=== PATIENT | female | born 1955 | race Two or more races ===

== ENCOUNTER 2023-12-16 23:53 | Inpatient (IN) | payer OTHER, MEDICAID ==
[~2023-12-16] VITALS: Ht 165.1 cm; Wt 64.5 kg
[2023-12-17] VITALS (64 sets, daily range): BP systolic 98–185; BP diastolic 36–81; PULSE 71–118; RESP 20–34; TEMP 98.2–102; O2SAT 96–100
[2023-12-17] MEDS: ETOMIDATE (2MG/ML) 20ML VIAL IV ONE (00:07)
[2023-12-17] MEDS: ROCURONIUM 10MG/ML 10ML VIAL IV ONE (00:08)
[2023-12-17 00:33] LABS: Eosinophils # (auto) 0.1 10 ^3/uL (0-0.8); Hematocrit 41.1 % (36.0-46.0); Monocytes # (auto) 0.7 10 ^3/uL (0-1.3); White Blood Cell 13.5 10^3/uL (4.4-10.8)
[2023-12-17 00:34] LABS: Basophils # (auto) 0.1 10 ^3/uL (0-0.2); Basophils % (auto) 0.4 % (0.0-2.0); Eosinophils % (auto) 0.5 % (0.0-7.0); Hemoglobin 12.9 g/dL (12.2-16.2); Lymphocytes # (auto) 7.1 10 ^3/uL (0.4-5.4); Lymphocytes % (auto) 52.5 % (10.0-50.0); Mean Corpuscular Hemoglobin 25.4 pg (28.0-32.0); Mean Corpuscular Hgb Conc. 31.4 g/dL (32.0-36.0); Mean Corpuscular Volume 80.8 fL (80.0-100.0); Monocytes % (auto) 5.3 % (0.0-12.0); Neutrophils # (auto) 5.6 10 ^3/uL (1.6-8.6); Neutrophils % (auto) 41.3 % (37.0-80.0); Red Blood Cells 5.08 10^6/uL (4.0-5.20); Red Cell Distribution Width 18.6 % (11.8-14.3)
[2023-12-17 00:37] LABS: Alanine Aminotransferase 14 U/L (7-40); Albumin 4.3 g/dL (3.2-4.8); Alkaline Phosphatase 101 U/L (46-116); Anion Gap 19 (5-15); Aspartate Aminotransferase 30 U/L (13-40); BUN/Creatinine Ratio 18.7 (10.0-20.0); Bilirubin, Total 0.3 mg/dL (0.2-1.0); Blood Urea Nitrogen 14 mg/dL (9-23); Calcium 9.6 mg/dL (8.7-10.4); Carbon Dioxide 16 mmol/L (20-30); Chloride 108 mmol/L (98-107); Glucose 241 mg/dL (74-106); Lipase 49 U/L (12-53); Potassium 4.1 mmol/L (3.5-5.1); Sodium 143 mmol/L (136-145); Total Protein 7.8 g/dL (5.7-8.2)
[2023-12-17] MEDS: PROPOFOL 100 ML IV SCH (00:45)
[2023-12-17 00:49] LABS: Lactic Acid w/Reflex 11.2 mmol/L (0.4-2.0)
[2023-12-17 01:21] LABS: Urine Bacteria None Seen /hpf (None Seen)
[2023-12-17] MEDS: ONDANSETRON HCL 4 MG/2 ML VIAL IV ONE (01:34)
[2023-12-17] MEDS: IOHEXOL 350 MG/ML 100ML IJ ONE (01:34)
[2023-12-17] MEDS: MORPHINE SULFATE 4 MG/ML SYR/VIAL IV ONE (01:34)
[2023-12-17 01:37] LABS: Urine Blood Negative /uL (Negative); Urine Clarity Clear (Clear); Urine Color Colorless (Yellow); Urine Hyaline Cast FEW /lpf (0 - 2); Urine Protein, UAD 2+ (Negative); Urine Specific Gravity 1.013 (1.001-1.035); Urine Urobilinogen Normal (Negative); Urine WBC 3 /hpf (0 - 5); Urine pH 5.5 (5.0-9.0)
[2023-12-17 01:44] LABS: Amphetamine Screen, Urine Neg (NEGATIVE); Barbiturate Scree,Urine Neg (NEGATIVE); Benzodiazephine Screen, Urine Neg (NEGATIVE)
[2023-12-17 01:45] LABS: Cannabinoid Screen, Urine Neg (NEGATIVE); Cocaine Screen, Urine Neg (NEGATIVE); Opiate Scree,Urine Neg (NEGATIVE); Phencyclidine Screen, Urine Neg (NEGATIVE)
[2023-12-17] MEDS: MIDAZOLAM DRIP 50 mg/50mL 50 ML IV SCH (01:55)
[2023-12-17] MEDS: SODIUM CHLORIDE 0.9% 1,000 ML IV ONE ×2 (01:55)
[2023-12-17 01:58] LABS: Base Excess -15.5 mmol/L (-2.0-2.0)
[2023-12-17] MEDS: NOREPINEPHRINE 8 MG/250ML KIT 250 ML IV SCH (02:25)
[2023-12-17] MEDS: DexAMETHasone SOD PHOS 10MG/1ML VIAL INJ IV ONE (02:37)
[2023-12-17] MEDS: NOREPINEPHRINE 8 MG/250ML KIT 250 ML IV ONE (02:38)
[2023-12-17] MEDS: CEFEPIME 2GM/50ML NS 50 ML IV ONE (02:48)
[2023-12-17] MEDS: VANCOMYCIN 1GM/200ML 200 ML IV ONE (02:49)
[2023-12-17 02:54] LABS: COVID19 ANTIGEN SOFIA FIA NEGATIVE (NEGATIVE)
[2023-12-17 03:53] LABS: Base Excess -11.1 mmol/L (-2.0-2.0)
[2023-12-17] MEDS ORDERED: MORPHINE SULFATE INJ 2 MG/ml SYRG IV PRN (06:00)
[2023-12-17] MEDS ORDERED: ONDANSETRON HCL 4 MG/2 ML VIAL IV PRN (06:00)
[2023-12-17] MEDS ORDERED: NITROGLYCERIN 0.4 MG SL TAB SL PRN (06:00)
[2023-12-17] MEDS ORDERED: VANCOMYCIN PER PHARMACY 0 MG IV SCH (06:00)
[2023-12-17] MEDS ORDERED: DEXTROSE (50%) 50ML SYRG IV PRN ×2 (06:00→13:30)
[2023-12-17] MEDS ORDERED: ACETAMINOPHEN 325 MG TAB PO PRN (06:00)
[2023-12-17] MEDS: ACCU-CHEK COMFORT CURVE STRIP VI SCH ×2 (06:42→17:57)
[2023-12-17] MEDS: InsuLIN REG 1unit/0.01ml Soln (100units/ml) SC SCH ×2 (06:44→17:58)
[2023-12-17] MEDS: SODIUM CHLORIDE 0.9% 1,000 ML IV SCH (06:46)
[2023-12-17] MEDS: ACETAMINOPHEN 500 MG TAB PO ONE (06:46)
[2023-12-17] MEDS: PIPERACILLIN-TAZOB 3.375GM 100 ML IV SCH (06:46)
[2023-12-17] MEDS: ENOXAPARIN SOD 60 MG/0.6 ML SYRINGE SC ONE (07:45)
[2023-12-17] MEDS: DOXYCYCLINE 100MG/250ML 250 ML IV SCH (10:45)
[2023-12-17] MEDS: fentaNYL Drip 2500mCg/250mlNS 250 ML IV SCH (11:15)
[2023-12-17] MEDS: PANTOPRAZOLE 40 MG/10 ML VIAL INJ IV ONE (11:21)
[2023-12-17] MEDS: HYDROCORTISONE SOD SUCC 100 MG/2ML INJ VIAL IV ONE (11:21)
[2023-12-17] MEDS: MEROPENEM 1GM IVPB 50 ML IV ONE (11:21)
[2023-12-17 11:26] LABS: Base Excess -9.7 mmol/L (-2.0-2.0)
[2023-12-17 11:51] LABS: INR 1.04 (0.9-1.15); Partial Thromboplastin Time 30.2 SEC (24.5-34.5)
[2023-12-17 12:08] LABS: Magnesium 1.7 mg/dL (1.6-2.6)
[2023-12-17 12:39] LABS: Lactic Acid w/Reflex 4.6 mmol/L (0.4-2.0)
[2023-12-17] MEDS ORDERED: LIDOCAINE 2% JELLY 11ml (GLYDO) ONE (14:06)
[2023-12-17] MEDS ORDERED: EPINEPHrine HCL 1 MG/1 ML AMP ONE (14:06)
[2023-12-17] MEDS ORDERED: LIDOCAINE 2%HCL (LOCAL ANESTH.) INJ 20ML MDV ONE (14:06)
[2023-12-17] MEDS ORDERED: GLYCOPYRROLATE 0.2 MG/ML 1ML VIAL ONE (14:07)
[2023-12-17] MEDS: MAGNESIUM SULFATE 1GM/100ML 100 ML IV ONE (15:09)
[2023-12-17] MEDS: INSULIN LANTUS (GLARGINE) 1 /0.01ml (100units/ml) SC ONE (15:14)
[2023-12-17 16:12] LABS: Rapid Influenza A Negative (Negative); Rapid Influenza B Negative (Negative)
[2023-12-17] MEDS: VANCOMYCIN 750mg/150ml 150 ML IV SCH (16:17)
[2023-12-17] MEDS: MEROPENEM 1GM IVPB 50 ML IV SCH (19:43)
[2023-12-17] MEDS: HYDROCORTISONE SOD SUCC 100 MG/2ML INJ VIAL IV SCH (22:18)
[2023-12-18] VITALS (104 sets, daily range): BP systolic 87–133; BP diastolic 38–61; PULSE 62–92; RESP 10–25; TEMP 97–99; O2SAT 90–100
[2023-12-18 05:07] LABS: Lactic Acid w/Reflex 2.2 mmol/L (0.4-2.0)
[2023-12-18 06:16] LABS: Basophils # (auto) 0 10 ^3/uL (0-0.2); Eosinophils # (auto) 0 10 ^3/uL (0-0.8); Mean Corpuscular Hemoglobin 25.4 pg (28.0-32.0); Monocytes # (auto) 0.5 10 ^3/uL (0-1.3)
[2023-12-18 06:17] LABS: Base Excess -4.3 mmol/L (-2.0-2.0)
[2023-12-18 06:24] LABS: Basophils % (auto) 0.4 % (0.0-2.0); Hematocrit 29.9 % (36.0-46.0); Hemoglobin 9.7 g/dL (12.2-16.2); Lymphocytes # (auto) 0.9 10 ^3/uL (0.4-5.4); Mean Corpuscular Hgb Conc. 32.5 g/dL (32.0-36.0); Mean Corpuscular Volume 78.2 fL (80.0-100.0); Monocytes % (auto) 4.8 % (0.0-12.0); Neutrophils % (auto) 85.8 % (37.0-80.0); Red Blood Cells 3.83 10^6/uL (4.0-5.20); Red Cell Distribution Width 17.8 % (11.8-14.3); White Blood Cell 10.5 10^3/uL (4.4-10.8)
[2023-12-18 06:38] LABS: Alanine Aminotransferase 16 U/L (7-40); Albumin 3.1 g/dL (3.2-4.8); Alkaline Phosphatase 66 U/L (46-116); Anion Gap 10 (5-15); Aspartate Aminotransferase 38 U/L (13-40); BUN/Creatinine Ratio 19.2 (10.0-20.0); Blood Urea Nitrogen 10 mg/dL (9-23); Calcium 7.4 mg/dL (8.7-10.4); Carbon Dioxide 19 mmol/L (20-30); Chloride 113 mmol/L (98-107); Glucose 121 mg/dL (74-106); Magnesium 1.8 mg/dL (1.6-2.6); Potassium 3.6 mmol/L (3.5-5.1); Sodium 142 mmol/L (136-145)
[2023-12-18 06:39] LABS: Bilirubin, Total 0.3 mg/dL (0.2-1.0); Total Protein 5.6 g/dL (5.7-8.2)
[2023-12-18] MEDS: POTASSIUM CHL 20MEQ/100ML 100 ML IV SCH (08:00)
[2023-12-18] MEDS: MAGNESIUM SULFATE 1GM/100ML 100 ML IV ONE (08:00)
[2023-12-18] MEDS: CALCIUM GLUC 1,000mg/50ml-NS 50 ML IV SCH (08:11)
[2023-12-18 08:40] LABS: Base Excess -5.8 mmol/L (-2.0-2.0)
[2023-12-18] MEDS: PANTOPRAZOLE 40 MG/10 ML VIAL INJ IV SCH (09:15)
[2023-12-18] MEDS: ENOXAPARIN SOD 40 MG/0.4 ML SYRINGE SC SCH (09:16)
[2023-12-18] MEDS: INSULIN LANTUS (GLARGINE) 1 /0.01ml (100units/ml) SC SCH (09:42)
[2023-12-18 10:30] LABS: % Iron Saturation 10.2 % (15-50)
[2023-12-18] MEDS ORDERED: Glucerna 1.2 Cal 1Liter BOTTLE GT SCH (13:15)
[2023-12-18] MEDS: ASPirin 81 mg TAB GT SCH (15:48)
[2023-12-18] MEDS: SODIUM FERR GLUC 62.5MG/5ML 110 ML IV SCH (16:33)
[2023-12-18] MEDS: ETOMIDATE (2MG/ML) 20ML VIAL IV ONE (18:32)
[2023-12-18] MEDS: ROCURONIUM 10MG/ML 10ML VIAL IV ONE (18:33)
[2023-12-18] MEDS: ATORVASTATIN 20 MG TAB GT SCH (22:07)
[2023-12-19] VITALS (90 sets, daily range): BP systolic 101–155; BP diastolic 33–70; PULSE 61–92; RESP 11–32; TEMP 97.3–100.2; O2SAT 90–100
[2023-12-19] MEDS: VANCOMYCIN 750mg/150ml 150 ML IV SCH (00:34)
[2023-12-19 03:50] LABS: Basophils # (auto) 0 10 ^3/uL (0-0.2); Basophils % (auto) 0.2 % (0.0-2.0); Eosinophils # (auto) 0 10 ^3/uL (0-0.8); Eosinophils % (auto) 0.3 % (0.0-7.0); Lymphocytes # (auto) 0.4 10 ^3/uL (0.4-5.4); Mean Corpuscular Volume 78.2 fL (80.0-100.0); Monocytes # (auto) 0.2 10 ^3/uL (0-1.3); Red Cell Distribution Width 18.4 % (11.8-14.3)
[2023-12-19 03:54] LABS: Hematocrit 26.8 % (36.0-46.0); Hemoglobin 8.8 g/dL (12.2-16.2); Mean Corpuscular Hemoglobin 25.7 pg (28.0-32.0); Mean Corpuscular Hgb Conc. 32.9 g/dL (32.0-36.0); Neutrophils # (auto) 8.8 10 ^3/uL (1.6-8.6); Neutrophils % (auto) 93.5 % (37.0-80.0); Red Blood Cells 3.43 10^6/uL (4.0-5.20); White Blood Cell 9.4 10^3/uL (4.4-10.8)
[2023-12-19 04:04] LABS: Alanine Aminotransferase 17 U/L (7-40); Alkaline Phosphatase 63 U/L (46-116); Anion Gap 6 (5-15); Aspartate Aminotransferase 26 U/L (13-40); BUN/Creatinine Ratio 20.4 (10.0-20.0); Blood Urea Nitrogen 11 mg/dL (9-23); Calcium 7.9 mg/dL (8.7-10.4); Carbon Dioxide 23 mmol/L (20-30); Chloride 112 mmol/L (98-107); Glucose 138 mg/dL (74-106); Potassium 4.5 mmol/L (3.5-5.1); Sodium 141 mmol/L (136-145)
[2023-12-19 04:05] LABS: Bilirubin, Total 0.2 mg/dL (0.2-1.0); Total Protein 5.5 g/dL (5.7-8.2)
[2023-12-19] MEDS: FUROSEMIDE 40 MG/4 ML VIAL IV ONE (07:42)
[2023-12-19 11:09] LABS: Base Excess 0.1 mmol/L (-2.0-2.0)
[2023-12-19] MEDS: ACETAMINOPHEN 650 MG RECT SUPP PR PRN (18:35)
[2023-12-20] VITALS (28 sets, daily range): BP systolic 123–160; BP diastolic 44–63; PULSE 55–71; RESP 12–27; TEMP 97.9–98.9; O2SAT 94–98
[2023-12-20 04:02] LABS: Basophils # (auto) 0 10 ^3/uL (0-0.2); Basophils % (auto) 0.1 % (0.0-2.0); Eosinophils # (auto) 0 10 ^3/uL (0-0.8); Eosinophils % (auto) 0.4 % (0.0-7.0); Lymphocytes # (auto) 0.6 10 ^3/uL (0.4-5.4); Mean Corpuscular Hemoglobin 25.7 pg (28.0-32.0); Mean Corpuscular Volume 76.4 fL (80.0-100.0); Monocytes # (auto) 0.2 10 ^3/uL (0-1.3); Nucleated Red Blood Cells % 0.1 %
[2023-12-20 04:07] LABS: Hematocrit 28.2 % (36.0-46.0); Hemoglobin 9.5 g/dL (12.2-16.2); Lymphocytes % (auto) 7.2 % (10.0-50.0); Mean Corpuscular Hgb Conc. 33.7 g/dL (32.0-36.0); Monocytes % (auto) 2.5 % (0.0-12.0); Neutrophils # (auto) 7.1 10 ^3/uL (1.6-8.6); Neutrophils % (auto) 89.8 % (37.0-80.0); Red Blood Cells 3.68 10^6/uL (4.0-5.20); White Blood Cell 7.9 10^3/uL (4.4-10.8)
[2023-12-20 04:19] LABS: Alanine Aminotransferase 13 U/L (7-40); Alkaline Phosphatase 67 U/L (46-116); Anion Gap 8 (5-15); BUN/Creatinine Ratio 16.3 (10.0-20.0); Blood Urea Nitrogen 7 mg/dL (9-23); Carbon Dioxide 32 mmol/L (20-30); Chloride 105 mmol/L (98-107); Glucose 120 mg/dL (74-106); Magnesium 1.5 mg/dL (1.6-2.6); Sodium 145 mmol/L (136-145)
[2023-12-20 04:20] LABS: Albumin 3.3 g/dL (3.2-4.8); Aspartate Aminotransferase 20 U/L (13-40); Bilirubin, Total 0.4 mg/dL (0.2-1.0); Total Protein 5.5 g/dL (5.7-8.2)
[2023-12-20 04:25] LABS: Potassium 2.2 mmol/L (3.5-5.1)
[2023-12-20] MEDS: MAGNESIUM SULFATE 1GM/100ML 200 ML IV ONE (05:50)
[2023-12-20] MEDS: POTASSIUM CHL 20MEQ/100ML 100 ML IV SCH ×2 (05:50→14:10)
[2023-12-20] MEDS: MAGNESIUM SULFATE 1GM/100ML 100 ML IV SCH (05:50)
[2023-12-20] MEDS: POTASSIUM CHL 20MEQ/100ML 300 ML IV ONE (05:51)
[2023-12-20] MEDS: MAGNESIUM SULFATE 1GM/100ML 100 ML IV ONE (10:59)
[2023-12-20] MEDS: DOCUSATE SOD 100 MG CAP PO ONE (10:59)
[2023-12-20] MEDS: HYDROcodone-ACET 5/325MG TAB PO PRN (10:59)
[2023-12-20 13:39] LABS: Potassium 2.9 mmol/L (3.5-5.1)
[2023-12-20 13:46] LABS: Magnesium 2.4 mg/dL (1.6-2.6)
[2023-12-20] MEDS: FERROUS SULFATE 325mg EC TAB PO SCH (18:00)
[2023-12-20] MEDS: POTASSIUM CHL 20MEQ/100ML 100 ML IV ONE (18:30)
[2023-12-20] MEDS: DOCUSATE SOD 100 MG CAP PO SCH (21:28)
[2023-12-21] VITALS (7 sets, daily range): BP systolic 107–180; BP diastolic 30–72; PULSE 62–78; RESP 16–20; TEMP 98.1–98.7; O2SAT 95–98
[2023-12-21 07:02] LABS: Basophils # (auto) 0 10 ^3/uL (0-0.2); Hemoglobin 10.4 g/dL (12.2-16.2); Lymphocytes # (auto) 1.8 10 ^3/uL (0.4-5.4); Nucleated Red Blood Cells % 0.3 %
[2023-12-21 07:04] LABS: Basophils % (auto) 0.3 % (0.0-2.0); Eosinophils # (auto) 0.6 10 ^3/uL (0-0.8); Hematocrit 31.4 % (36.0-46.0); Lymphocytes % (auto) 28.6 % (10.0-50.0); Mean Corpuscular Hemoglobin 25.5 pg (28.0-32.0); Mean Corpuscular Hgb Conc. 33.1 g/dL (32.0-36.0); Monocytes # (auto) 0.6 10 ^3/uL (0-1.3); Monocytes % (auto) 8.8 % (0.0-12.0); Neutrophils # (auto) 3.4 10 ^3/uL (1.6-8.6); Neutrophils % (auto) 53.3 % (37.0-80.0); Red Blood Cells 4.08 10^6/uL (4.0-5.20); Red Cell Distribution Width 18.2 % (11.8-14.3); White Blood Cell 6.3 10^3/uL (4.4-10.8)
[2023-12-21 07:14] LABS: Alanine Aminotransferase 12 U/L (7-40); Alkaline Phosphatase 67 U/L (46-116); Anion Gap 6 (5-15); Aspartate Aminotransferase 19 U/L (13-40); BUN/Creatinine Ratio 15.4 (10.0-20.0); Blood Urea Nitrogen 6 mg/dL (9-23); Calcium 8.4 mg/dL (8.7-10.4); Carbon Dioxide 31 mmol/L (20-30); Chloride 106 mmol/L (98-107); Glucose 82 mg/dL (74-106); Magnesium 2.1 mg/dL (1.6-2.6); Potassium 3.1 mmol/L (3.5-5.1); Sodium 143 mmol/L (136-145)
[2023-12-21 07:15] LABS: Albumin 3.4 g/dL (3.2-4.8); Bilirubin, Total 0.6 mg/dL (0.2-1.0); Total Protein 5.7 g/dL (5.7-8.2)
[2023-12-21] MEDS: POTASSIUM EFFERVESENT TAB 25 MEQ PO ONE (14:51)
[2023-12-21] MEDS: diphenhdrAMINE HCL 25 MG CAP PO ONE (16:27)
[2023-12-21] MEDS: hydrALAZINE HCL 20 MG/ML VL IV PRN (19:34)
== END 2023-12-21 19:48 | disposition short-term general hospital (02) | DRG 871 ==
LOC: ER 23:53 → EDBD 23:53 → TELE 12-17 06:03 → EDBD 12-17 06:03 → ICU WEST 12-17 09:14 → TELE-CENTR 12-20 22:25
PROVIDERS: ADMIT Internal Medicine Pulmonary Disease; ATTEND Internal Medicine Pulmonary Disease
PROC: 0B9J8ZZ Drainage of Left Lower Lung Lobe, Via Natural or Artificial Opening Endoscopic (ICD-10-PCS; 2023-12-17)
PROC: 5A1945Z Respiratory Ventilation, 24-96 Consecutive Hours (ICD-10-PCS; 2023-12-17)
PROC: 0BH17EZ Insertion of Endotracheal Airway into Trachea, Via Natural or Artificial Opening (ICD-10-PCS; 2023-12-17)
PROC: 0B9F8ZZ Drainage of Right Lower Lung Lobe, Via Natural or Artificial Opening Endoscopic (ICD-10-PCS; 2023-12-17)
PROC: 06HY33Z Insertion of Infusion Device into Lower Vein, Percutaneous Approach (ICD-10-PCS; principal; 2023-12-17 13:15)
DX: A41.9 Sepsis, unspecified organism (principal); G93.41 Metabolic encephalopathy; I21.A1 Myocardial infarction type 2; R65.21 Severe sepsis with septic shock; J96.01 Acute respiratory failure with hypoxia; J15.69 Pneumonia due to other Gram-negative bacteria; J15.9 Unspecified bacterial pneumonia; I31.39 Other pericardial effusion (noninflammatory); E87.20 Acidosis, unspecified; Z20.822 Contact with and (suspected) exposure to COVID-19; I10 Essential (primary) hypertension; E11.9 Type 2 diabetes mellitus without complications; K80.20 Calculus of gallbladder without cholecystitis without obstruction; E78.2 Mixed hyperlipidemia; I25.10 Atherosclerotic heart disease of native coronary artery without angina pectoris
CPT/HCPCS: 31500; 31645; 36415; 36556; 36600; 70450; 71045; 71260; 72125; 74177; 76705; 80053; 80061; 80202; 80307; 81001; 82728; 82805; 82962; 83036; 83540; 83550; 83605; 83690; 83735; 83880; 84132; 84439; 84443; 84484; 85025; 85379; 85610; 85730; 87040; 87070; 87077; 87081; 87186; 87205; 87426; 87804; 92610; 93005; 93306; 93970; 94002; 94003; 97163; 99291; G0378; J0171; J0692; J1100; J1815; J2185; J2470; J2543; J2704; J3480; J3490